=== PATIENT | male | born 1995 | race Caucasian/White ===

== ENCOUNTER 2017-05-10 11:55 | Emergency (ER) | payer SELFPAY ==
[~2017-05-10] VITALS: Ht 175.3 cm; Wt 113.0 kg
[2017-05-10] MEDS ORDERED: HYDROCODONE/ACETAMINOPHEN 10/325MG TABLET PO ONE (12:45)
[2017-05-10] MEDS ORDERED: LIDOCAINE HCL/EPINEPHRINE 1%-EPI 1:100,000 20 ML VIAL INFIL ONE (15:00)
[2017-05-10] MEDS ORDERED: BACITRACIN ZINC OINT UDPKT TOP ONE (15:15)
[2017-05-10] MEDS ORDERED: LIDOCAINE HCL/EPINEPHRINE 1%-EPI 1:100,000 30 ML VIAL INFIL ONE (16:30)
[2017-05-10 17:33] VITALS: BP 140/84
== END 2017-05-10 17:40 | disposition home or self-care (01) ==
LOC: ER 13:53
DX: S01.81XA Laceration without foreign body of other part of head, initial encounter (principal); S40.011A Contusion of right shoulder, initial encounter; S46.911A Strain of unspecified muscle, fascia and tendon at shoulder and upper arm level, right arm, initial encounter; S05.30XA Ocular laceration without prolapse or loss of intraocular tissue, unspecified eye, initial encounter; Y93.55 Activity, bike riding
CPT/HCPCS: 12014; 70486; 73030; 99284; J3490